=== PATIENT | male | born 1960 | race Caucasian/White ===

== ENCOUNTER 2016-12-13 12:43 | Emergency (ER) | payer BC, OTHER ==
--- NOTE | 2016-12-13 12:57 | Emergency Department Record ---
History of Present Illness - General Chief Complaint: Fall Injury Stated Complaint: FALL/WC /R WRIST,SHOULDER Time Seen by Provider: 12/13/16 12:51 Source: Patient Mode of Arrival: Ambulatory Limitations: No limitations - History of Present Illness Initial Comments: 55 yo male presents after a fall at 8am. 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 The bucket stopped moving and he tumbled over backward. He thinks he could have hit hit head and is unsure if he had an LOC. He has a headache and feels "foggy". He has right elbow and wrist pain. No deformity. No weakness. He has pain with activity and movement of those joints. No other complaints. 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 Witnessed: No Place Fall Occurred: Work Loss of Consciousness: Unsure Prolonged Down Time?: No Symptoms Prior to Fall: None Location - Extremities: Right: Elbow, Forearm Severity: Moderate Severity scale (1-10): 6 Quality: Aching Context: Tripped/slipped Associated Symptoms: Denies - [place] Coma Scale Eye Response: (4) Open spontaneously Motor Response: (6) Obeys commands Verbal Response: (5) Oriented [place] Total: 15 - Related Data Home Medications Medication Instructions Recorded Confirmed Last Taken Aspirin/Calcium Carbonate/Mag 325 mg PO DAILY 12/13/16 12/13/16 12/12/16 [Aspirin Buffered 325 mg Tab] Allergies Allergy/AdvReac Type Severity Reaction Status Date / Time No Known Drug Allergies Allergy Verified 12/13/16 12:52 Travel Screening - Travel/Exposure Within Last 30 Days Have you traveled within the last 30 days?: No - Travel/Exposure Within Last Year Have you traveled outside the [place] in the last year?: No - Additonal Travel Details Have you been exposed to anyone with a communicable illness?: No - Travel Symptoms Symptom Screening: None Review of Systems Constitutional: Denies: Chills, Fever, Weakness Eyes: Denies: Eye discharge ENT: Denies: Congestion, Throat pain Respiratory: Denies: Cough Cardiovascular: Denies: Chest pain, Palpitations, Syncope Endocrine: Denies: Fatigue Gastrointestinal: Denies: Abdominal pain, Diarrhea, Nausea, Vomiting Genitourinary: Denies: Dysuria, Frequency, Hematuria Musculoskeletal: Reports: Arthralgia, Myalgia. Denies: Back pain, Joint swelling, Neck pain Skin: Denies: Bruising, Rash Neurological: Reports: Confusion ("foggy"), Headache, Vertigo. Denies: Numbness , Weakness Psychiatric: Denies: Anxiety Hematological/Lymphatic: Denies: Blood Clots, Easy bleeding, Easy bruising, Swollen glands Physical Exam - General General Appearance: Alert, Oriented x3, Cooperative, No acute distress Limitations: No limitations - Head Head exam: Atraumatic, Normocephalic, Normal inspection - Eye Eye exam: Normal appearance, PERRL, EOMI. negative: Conjunctival injection, Periorbital swelling - ENT ENT exam: Normal exam Ear exam: Normal external inspection Nasal Exam: Normal inspection Mouth exam: Normal external inspection Teeth exam: Normal inspection Throat exam: Normal inspection - Neck Neck exam: Normal inspection, Full ROM. negative: Tenderness - Respiratory Respiratory exam: Normal lung sounds bilaterally. negative: Respiratory distress - Cardiovascular Cardiovascular Exam: Regular rate, Normal rhythm, Normal heart sounds Peripheral Pulses: 2+: Radial (R), Radial (L) - GI/Abdominal GI/Abdominal exam: Soft. negative: Tenderness - Rectal Rectal exam: Deferred - exam: Deferred - Extremities Extremities exam: Normal inspection, Full ROM, Normal capillary refill, Tenderness. negative: Calf tenderness, Joint swelling, Pedal edema Image of Full Body: 1 - normal inspection of the RUE, full ROM of the shoulder, elbow and wrist but some associated pain, No swelling, bruising or abrasions - Back Back exam: Reports: Normal inspection, Full ROM. Denies: CVA tenderness (R), CVA tenderness (L), Muscle spasm, Paraspinal tenderness, Rash noted, Tenderness , Vertebral tenderness - Neurological Neurological exam: Alert, CN II-XII intact, Normal gait, Oriented X3. negative : Abnormal gait, Altered, Motor sensory deficit - Psychiatric Psychiatric exam: Normal affect, Normal mood. negative: Agitated, Anxious, Depressed - Skin Skin exam: Dry, Intact, Normal color, Warm. negative: Abrasion, Cyanosis, Erythema, Mottled Course Vital Signs 12/13/16 12:47 Temperature 98.0 F Pulse Rate 61 Respiratory 16 Rate Blood Pressure 162/94 Pulse Ox 98 - Reevaluation(s) Reevaluation #1: The patient is doing well. I reviewed the prelim XR's and CT. No acute injury noted. Will review the final as well 12/13/16 13:47 Reevaluation #2: The radiographic studies were reviewed No acute injuries 12/13/16 14:08 Disposition Disposition: Discharge Clinical Impression: Head contusion Qualifiers: Encounter type: initial encounter Contusion of head detail: unspecified part of head Qualified Code(s): S00.93XA - Contusion of unspecified part of head, initial encounter Elbow sprain Qualifiers: Encounter type: initial encounter Laterality: right Qualified Code(s): S53.401A - Unspecified sprain of right elbow, initial encounter Sprain of wrist, right Qualifiers: Encounter type: initial encounter Qualified Code(s): S63.501A - Unspecified sprain of right wrist, initial encounter Disposition: Home, Self-Care Condition: (1) Good Instructions: Concussion (ED) Additional Instructions: Off work today and tomorrow to rest Return if worse, uncontrolled pain, any new concerns or questions Call your doctor today to schedule a follow up after today's ER visit and to review your tests and results Forms: Patient Portal Access Time of Disposition: 12:58
--- NOTE | 2016-12-13 21:41 | RADIOLOGY REPORT ---
EXAM: ELBOW, RIGHT 3 VIEWS HISTORY: STATUS POST FALL. TECHNIQUE: Three views of the right shoulder are provided without comparison examinations. FINDINGS: There is no radiographic evidence of a fracture or dislocation of the right elbow. No significant soft tissue abnormalities are visualized. Antecubital and olecranon fat pads are unremarkable. IMPRESSION: NO RADIOGRAPHIC EVIDENCE OF AN ACUTE PROCESS INVOLVING THE RIGHT ELBOW. JOB NUMBER: [id number] MTDD
--- NOTE | 2016-12-13 21:44 | RADIOLOGY REPORT ---
EXAM: WRIST, RIGHT 3 VIEWS HISTORY: THE PATIENT HAS A HISTORY OF FALL. TECHNIQUE: Three views of the right wrist are provided. FINDINGS: There is no radiographic evidence of a fracture or dislocation of the right wrist. No significant soft tissue abnormalities are visualized. IMPRESSION: NO RADIOGRAPHIC EVIDENCE OF AN ACUTE PROCESS INVOLVING THE RIGHT WRIST. JOB NUMBER: [id number] MTDD
--- NOTE | 2016-12-13 21:50 | CT SCAN REPORT ---
EXAM: CT SCAN HEAD WO CONTRAST HISTORY: THE PATIENT HAS A HISTORY OF FALL. TECHNIQUE: Serial axial CT scan of the head was performed in 2.5 mm intervals from the base of the skull through the apex without the use of intravenous contrast. COMPARISON: No comparison CT's are available. FINDINGS: The ventricles, cisterns, and sulci appear within normal limits for size, shape, and attenuation. There is no mass or mass effect. The poe and white differentiation appear within normal limits. There is no CT evidence of intra or extraaxial fluid collection to suggest bleeding. Bone windows demonstrate no CT evidence of a fracture or dislocation of the skull. Paranasal sinuses demonstrate occasional mucous retention cysts within the left maxillary sinus. IMPRESSION: NO CT EVIDENCE OF AN ACUTE INTRACRANIAL PROCESS. JOB NUMBER: [id number] MTDD
== END 2016-12-13 14:20 | disposition home or self-care (01) ==
LOC: ER 12:43
DX: S00.93XA Contusion of unspecified part of head, initial encounter (principal); S53.401A Unspecified sprain of right elbow, initial encounter; S63.501A Unspecified sprain of right wrist, initial encounter; R51 Headache; W01.0XXA Fall on same level from slipping, tripping and stumbling without subsequent striking against object, initial encounter; Y93.E5 Activity, floor mopping and cleaning; Y99.0 Civilian activity done for income or pay
CPT/HCPCS: 70450; 99283